=== PATIENT | male | born 1960 | race Caucasian/White ===

== ENCOUNTER → 2018-11-27 | Outpatient (CLI) | payer BC ==
--- NOTE | 2018-11-27 14:47 | Diagnostic Imaging Report ---
INDICATION: Pain in the left knee. TIME OF EXAM: 1:36 p.m. COMPARISON: No prior studies are available for comparison. FINDINGS: Three views of the left knee were obtained. There is a corticated osseous density along the medial joint space adjacent to the medial tibial plateau. There is some medial joint space narrowing and marginal spurring present. The lateral compartment is maintained. Mild patellofemoral degenerative change is noted. Small joint effusion is seen. IMPRESSION: Degenerative changes and small joint effusion with chronic changes at the medial joint line. No acute abnormality is detected. Dictated by: Dictated on workstation # [id number]
== END ==
LOC: RAD FS 13:31
PROVIDERS: ATTEND Nurse Practitioner
DX: M17.12 Unilateral primary osteoarthritis, left knee (principal)
CPT/HCPCS: 73562

== ENCOUNTER → 2020-03-19 | Outpatient (CLI) | payer BC ==
[~2020-03-19] MED LIST: DOCU-143 PO; HYDR-4226 PO; LISI-552 PO; METF-397 PO
[2020-03-19 10:10] LABS: HEMOGLOBIN 14.7 G/DL (13.3-17.7); MEAN CORPUSCULAR HEMOGLOBIN 30 PG (25-34); WHITE BLOOD COUNT 8.3 10^3/uL (4.3-11.0)
[2020-03-19 10:11] LABS: BASOPHILS # (AUTO) 0.1 10^3/uL (0.0-0.1); BASOPHILS % (AUTO) 1 % (0-10); EOSINOPHILS # (AUTO) 0.1 10^3/uL (0.0-0.3); EOSINOPHILS % (AUTO) 1 % (0-10); HEMATOCRIT 43 % (40-54); LYMPHOCYTES # (AUTO) 1.5 X 10^3 (1.0-4.0); LYMPHOCYTES % (AUTO) 19 % (12-44); MEAN CORPUSCULAR HGB CONC 34 G/DL (32-36); MEAN CORPUSCULAR VOLUME 90 FL (80-99); MEAN PLATELET VOLUME 9.9 FL (7.4-10.4); MONOCYTES % (AUTO) 12 % (0-12); NEUTROPHILS # (AUTO) 5.6 X 10^3 (1.8-7.8); NEUTROPHILS % (AUTO) 68 % (42-75); PLATELET COUNT 282 10^3/uL (130-400)
[2020-03-19 10:12] LABS: CARBON DIOXIDE 23 MMOL/L (21-32); CHLORIDE 102 MMOL/L (98-107); POTASSIUM 4.5 MMOL/L (3.6-5.0); SODIUM 134 MMOL/L (135-145)
[2020-03-19 10:13] LABS: ALANINE AMINOTRANSFERASE 18 U/L (0-55); ALBUMIN 4.2 GM/DL (3.2-4.5); ALKALINE PHOSPHATASE 63 U/L (40-136); BILIRUBIN,TOTAL 0.7 MG/DL (0.1-1.0); BUN/CREATININE RATIO 24; CALCIUM 9.4 MG/DL (8.5-10.1); CREATININE SERUM 0.85 MG/DL (0.60-1.30); GFR ESTIMATED > 60; GLUCOSE 146 MG/DL (70-105); TOTAL PROTEIN 7.9 GM/DL (6.4-8.2)
== END ==
LOC: LAB FS 08:36
PROVIDERS: ATTEND Nurse Practitioner Family
DX: R10.11 Right upper quadrant pain (principal)
CPT/HCPCS: 36415; 80053; 85025

== ENCOUNTER 2020-03-20 05:29 | Outpatient (RCR) | payer BC ==
[~2020-03-20] VITALS: Ht 182.9 cm; Wt 134.7 kg
[2020-03-20] MEDS ORDERED: LISI-552 PO (09:35)
[2020-03-20] MEDS ORDERED: METF-397 PO (09:35)
[2020-03-21] MEDS ORDERED: DOCU-143 PO (13:05)
[2020-03-21] MEDS ORDERED: HYDR-4226 PO (13:05)
== END 2020-03-20 09:40 | disposition home or self-care (01) ==
LOC: PREOP 05:29
PROVIDERS: ATTEND Surgery
DX: Z01.818 Encounter for other preprocedural examination (principal); K80.20 Calculus of gallbladder without cholecystitis without obstruction; K82.8 Other specified diseases of gallbladder
CPT/HCPCS: 87635

== ENCOUNTER 2020-03-21 09:35 | Day surgery (SDC) | payer BC ==
[2020-03-21] VITALS (12 sets, daily range): BP systolic 131–160; BP diastolic 80–102
[~2020-03-21] VITALS: Ht 182 cm; Wt 134.0 kg
[~2020-03-21 09:35] MED LIST changes: -DOCU-143 PO; -HYDR-4226 PO
[2020-03-21] MEDS ORDERED: ceFAZolin 2 GM IV Premixed 50 ML IV ONE (10:00)
[2020-03-21] MEDS ORDERED: LACTATED RINGERS 1,000 ML IV PRN (10:00)
[2020-03-21] MEDS ORDERED: LIDOCAINE/EPI 1%-1:100,000 (XYLOCAINE) 50 ML ONE (10:02)
[2020-03-21] MEDS ORDERED: fentaNYL INJECTION 100 MCG/2 ML AMP ONE ×3 (10:19→13:16)
[2020-03-21] MEDS ORDERED: ONDANSETRON 4 MG/2 ML (SDV) Z0FRAN ONE (10:19)
[2020-03-21] MEDS ORDERED: MIDAZOLAM 2 MG/2 ML (VERSED) VIAL ONE (10:19)
[2020-03-21] MEDS ORDERED: proPOfol 200 MG/20 ML (DIPRIVAN) VIAL IV ONE (10:19)
[2020-03-21] MEDS ORDERED: LIDOCAINE PF 2% 5 ML (XYLOCAINE) VIAL ONE (10:19)
[2020-03-21] MEDS ORDERED: ROCURONIUM 10 MG/ML 5 ML SYRINGE IV ONE ×2 (10:19→12:47)
[2020-03-21] MEDS ORDERED: SEVOFLURANE (ULTANE) 15 ML INHAL SOLN ONE ×4 (10:21→13:28)
--- NOTE | 2020-03-21 11:32 | Progress Note-Pre Operative ---
Pre-Operative Progress Note H&P Reviewed The H&P was reviewed, patient examined and no changes noted. Date Seen by Provider: Mar 21, 2020 Time Seen by Provider: 11:32 Date H&P Reviewed: Mar 21, 2020 Time H&P Reviewed: 11:32 Pre-Operative Diagnosis: RIGHT UPPER QUADRANT ABD PAIN, GB SLUDGE VIRGILIO VICKERS DO Mar 21, 2020 11:32
[2020-03-21] MEDS ORDERED: IOPAMIDOL 61% 30 ML (ISOVUE 300) VIAL ONE (12:40)
[2020-03-21] MEDS ORDERED: GLYCOPYRROLATE 0.2 MG/ML (ROBINUL) 2 ML VIAL ONE (12:47)
[2020-03-21] MEDS ORDERED: NEOSTIGMINE 3 MG/3 ML VIAL ONE (12:47)
--- NOTE | 2020-03-21 13:04 | Progress Note-Post Operative ---
Post-Operative Progess Note Surgeon (s)/Platinumsmith (s) Surgeon VIRGILIO VICKERS DO Platinumsmith: Dr. Lima to assist in retratction dissectio and closure. Pre-Operative Diagnosis RIGHT UPPER QUADRANT ABD PAIN, GB SLUDGE Post-Operative Diagnosis acute and chronic cholecystitis, cholelithiasis Procedure & Operative Findings Date of Procedure 03/21/20 Procedure Performed/Findings PROCEDURE: Laparoscopic cholecystectomy with intraoperative cholangiogram. COMPLICATIONS: None. PROCEDURE: The patient was taken to the operating suite and was prepped and draped in sterile fashion. A surgical pause was performed. Just superior to the umbilicus, a 12 mm incision was made. Dissection was taken down to the fascia, which was then scored and grasped with a Azam and the abdomen was then entered. A 0 Vicryl suture was placed in a dptmiw-[id number]-ewnqw fashion and a Becerra trocar was placed and secured. Pneumoperitoneum was achieved. A 5mm trochar place in the subxyphoid and 2 in the right upper quadrant. The gallbladder distended and chronic/acute cholecystitis appearance, was then grasped and elevated. The adhesions were taken down and gallbladder decompressed. The cystic duct, and cystic artery were then dissected out. Clip was placed on the distal portion of the cystic duct which was then partially transected. An arrow catheter was inserted into the duct. The cholangiogram was then performed. No filing defects and contrast made its way into the duodenum. Catheter removed. Clips were placed on proximal portion of the cystic duct and then the duct was then transected. Clips were placed along the proximal and distal portion of the cystic artery which was then transected. Hook cautery was used to dissect the gallbladder from the gallbladder fossa achieving hemostasis. The gallbladder was placed in an Endobag and removed through the 12 mm trocar site. The abdomen was then reinspected. Copious amounts of irrigation were used to irrigate the abdomen and there were no signs of active bleeding. Hemostasis had been achieved. The 12 mm fascial defect was then closed with 0 Vicryl suture that had been placed in a npkvdt-nw-kagio fashion. The abdomen was then desufflated, the trocars were removed. The abdomen was then washed and dried. The skin was then closed using 4-0 Monocryl in a subcuticular fashion. The abdomen was washed and dried and Skin Affix was place over incisions. Patient tolerated the procedure well without any complications and was taken to the recovery room in stable condition. Anesthesia Type general Estimated Blood Loss Estimated blood loss (mL): minimal Specimens/Packing Specimens Removed gallbladder VIRGILIO VICKERS DO Mar 21, 2020 13:04
[2020-03-21] MEDS ORDERED: HYDR-4226 PO (13:05)
[2020-03-21] MEDS ORDERED: DOCU-143 PO (13:05)
--- NOTE | 2020-03-21 13:06 | Discharge Inst-Simple/Standard ---
Discharge Inst-Standard Discharge Medications New, Converted or Re-Newed RX: RX on Chart Patient Instructions/Follow Up Plan of Care/Instructions/FU: 2-3 weeks Avinash Activity as Tolerated: No Discharge Diet: Regular Diet Other Inst to Patient Follow up Appt: Make appointment for 2-3 weeks. Instructions: No lifting greater than 10 pounds. No strenuous activity. May shower in 24 hours, no tub bath or soaking. Use incentive spirometer at home as directed. No Smoking Skin/Wound Care: You have special glue over incision, it will fall off on it's own. Symptoms to Report: Appetite Changes, Extremity Discoloration, Numbness/Tingling, Swelling Increased, Bleeding Excessive, Eyesight Changes, Pain Increased, Urine Color Change, Constipation(Persistent), Fever over 101 degree F, Pain/Pressure in chest, Urinating Difficulty, Cough Up/Vomit Blood, Heart Beat Irreg/Pounding, Pain/Pressure in jaw, Vaginal Bleeding Increase, Cramps in feet or legs, Lightheadedness, Pain/Pressure in shoulder, Diarrhea(Persistent), Memory Changes Suddenly, Questions/Concerns, Weight gain consecutive days, Dizziness/Fainting, Nausea/Vomiting, Shortness of Breath, Weight gain over 2 pounds. If eyes or skin turn yellow notify physician. If questions or concerns contact your physician Or seek help at emergency department. VIRGILIO VICKERS DO Mar 21, 2020 13:06
[2020-03-21] MEDS ORDERED: HYDROmorphone 2 MG/ML VIAL (DILAUDID) IV ONE (13:30)
[2020-03-21] MEDS ORDERED: ONDANSETRON 4 MG/2 ML (SDV) Z0FRAN IVP PRN (13:30)
[2020-03-21] MEDS ORDERED: morphine INJ 10 MG/ML 1ML (SYR OR VIAL) IVP ONE (13:30)
[2020-03-21] MEDS ORDERED: MEPERIDINE (DEMEROL) INJ 50 MG/ML IVP ONE (13:30)
--- NOTE | 2020-03-21 13:30 | Anesthesia-General Post-Op ---
General Patient Condition Mental Status/LOC: Same as Preop Cardiovascular: Satisfactory Nausea/Vomiting: Absent Respiratory: Satisfactory Pain: Controlled Complications: Absent Post Op Complications Complications None Follow Up Care/Instructions Patient Instructions None needed. Anesthesia/Patient Condition Patient Condition Patient is doing well, no complaints, stable vital signs, no apparent adverse anesthesia problems. No complications reported per nursing. GINGER ADEN CRNA Mar 21, 2020 13:30
--- NOTE | 2020-03-21 15:26 | Diagnostic Imaging Report ---
INDICATION: Fluoroscopy during intraoperative cholangiogram. Fluoroscopy was provided during intraoperative cholangiogram. 12 seconds of fluoroscopic time was utilized. Images demonstrate contrast being injected via the cystic duct remnant. There is opacification of the intrahepatic and extrahepatic bile ducts. No filling defects are seen to suggest retained stone. Contrast flows into the duodenum. IMPRESSION: Fluoroscopy during intraoperative cholangiogram. Dictated by: Dictated on workstation # [id number]
== END 2020-03-21 15:35 ==
LOC: SDC 09:35
PROVIDERS: ATTEND Surgery
DX: K80.12 Calculus of gallbladder with acute and chronic cholecystitis without obstruction (principal); I10 Essential (primary) hypertension; E11.9 Type 2 diabetes mellitus without complications; E66.01 Morbid (severe) obesity due to excess calories; Z68.41 Body mass index [BMI] 40.0-44.9, adult; Z79.84 Long term (current) use of oral hypoglycemic drugs; Z80.3 Family history of malignant neoplasm of breast
CPT/HCPCS: 76000; 82962; 87081; 88304